=== PATIENT | female | born 1950 | race Caucasian/White ===

== ENCOUNTER 2016-10-20 10:38 | Emergency (ER) | payer OTHER, MEDICARE ==
[2016-10-20 13:18] VITALS: BP 133/72
--- NOTE | 2016-10-20 14:33 | UC ---
General HPI - HPI Summary HPI Summary: SMALL (POSSIBLE TICK) ON LEFT ANTECUBITAL FOSSA. FOUND TODAY. NO FEVER. NO RASHES. - History of Current Complaint Chief Complaint: Jennifer Stated Complaint: TICK BITE Time Seen by Provider: 10/20/16 13:17 Hx Obtained From: Patient Onset Severity: Mild Current Severity: None Pain Intensity: 0 Associated Signs & Symptoms: Negative: Abdominal Pain, Back Pain, Confusion, Cough, Chest Pain, Diarrhea, Dysuria, Fever, Nausea, Syncope, SOB, Trauma, Vomiting - Allergy/Home Medications Allergies/Adverse Reactions: Allergies Allergy/AdvReac Type Severity Reaction Status Date / Time No Known Allergies Allergy Verified 10/20/16 12:18 PMH/Surg Hx/FS Hx/Imm Hx Previously Healthy: Yes - Surgical History Surgical History: Yes Surgery Procedure, Year, and Place: 1992 HYSTERECTOMY - Family History Known Family History: Positive: Other - CVA, osteoporosis - Social History Occupation: Employed Full-time Lives: With Family Alcohol Use: None Substance Use Type: None Smoking Status (MU): Never Smoked Tobacco Review of Systems Constitutional: Negative Skin: Other - SMALL <1mm INSECT LEFT ANTECUBITAL FOSSA Eyes: Negative ENT: Negative Respiratory: Negative Cardiovascular: Negative Gastrointestinal: Negative Genitourinary: Negative Motor: Negative Neurovascular: Negative Musculoskeletal: Negative Neurological: Negative Psychological: Negative All Other Systems Reviewed And Are Negative: Yes Physical Exam Triage Information Reviewed: Yes Appearance: Well-Appearing, No Pain Distress, Well-Nourished Vital Signs: Initial Vital Signs Temp 98.8 F 10/20/16 12:15 Pulse 67 10/20/16 12:15 Resp 16 10/20/16 12:15 BP 110/72 10/20/16 12:15 Pulse Ox 100 10/20/16 12:15 Vital Signs Reviewed: Yes Eye Exam: Normal ENT Exam: Normal ENT: Positive: Normal ENT inspection, Hearing grossly normal, TMs normal Dental Exam: Normal Neck exam: Normal Neck: Positive: Supple, Nontender Respiratory Exam: Normal Respiratory: Positive: Chest non-tender, Lungs clear, Normal breath sounds, No respiratory distress, No accessory muscle use Cardiovascular Exam: Normal Cardiovascular: Positive: RRR, No Murmur, Pulses Normal Abdominal Exam: Normal Musculoskeletal Exam: Normal Musculoskeletal: Positive: Strength Intact Neurological Exam: Normal Psychological Exam: Normal Psychological: Positive: Normal Response To Family Skin: Positive: Other - SMALL <1mm INSECT LEFT ANTECUBITAL FOSSA Procedures - Procedure Summary Procedure Summary: SMALL <1mm INSECT LEFT ANTECUBITAL FOSSA; REMOVED WITH [employer] Course/Dx - Differential Dx - Multi-Symptom Provider Diagnoses: SMALL <1mm INSECT LEFT ANTECUBITAL FOSSA REMOVED WITH [employer] Discharge - Discharge Plan Condition: Stable Disposition: HOME Prescriptions: DOXYcycline CAP(*) [DOXYcycline 100MG CAP(*)] 200 mg PO ONCE #2 cap Patient Education Materials: Insect Bite or Sting (ED), Tick Bite (ED) Referrals: Felisha Schwab MD [Primary Care Provider] -
== END 2016-10-20 13:39 | disposition home or self-care (01) ==
LOC: UCEAST 10:38
DX: S50.361A Insect bite (nonvenomous) of right elbow, initial encounter (principal); W57.XXXA Bitten or stung by nonvenomous insect and other nonvenomous arthropods, initial encounter; Y93.9 Activity, unspecified; Y99.9 Unspecified external cause status
CPT/HCPCS: 99211; G0463